=== PATIENT | female | born 1975 | race African-American/Black ===

== ENCOUNTER 2025-02-18 09:06 | Outpatient (AMB) | payer OTHER, SELFPAY ==
--- NOTE | 2025-02-18 09:03 | MHC.OFFWIV ---
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 Right flank pain: - Onset: Approximately two weeks ago. - Timing: Occurs overnight and persists into the morning, improving by around noon. - Characteristics: Pain intensifies when lying down and diminishes with movement. - Associated Symptoms: No blood observed in urine, no history of kidney stones, and no related family history. Red spot under the breast: - Onset: Noticed two days ago. - Characteristics: The spot has a different color in the center compared to the periphery, suggesting a possible insect bite. - Associated Symptoms: No itching or pain associated with the spot. Medical History: - Gastric issues requiring medication due to a history of gastric surgery in 2016. - Diabetes mellitus (implied by use of Mounjaro). Surgical History: - Gastric surgery in 2016. Medications: - Hycosamine 0.125 mg for gastric spasms, taken sublingually. - Clonidine patch for an unspecified indication. - Mounjaro 5 mg weekly for diabetes. - Vitamin D supplement. - B12 supplement. Social History: - Unemployed. - Recently moved from [place], looking for a new primary care provider. - Experience of limited mobility due to prior surgery (spent a year in the hospital post-surgery). Problem List - Right flank pain - Suspected insect bite - Diabetes mellitus - History of gastric surgery - need medication refill Plan - Suspected insect bite under the breast: Instructed to monitor the red spot, watch for any changes in size or symptoms. If the spot enlarges, follow-up is suggested. - Right flank pain: Advised rest, application of local heat, and use of acetaminophen for pain relief. Instructed to avoid nonsteroidal anti-inflammatory drugs due to gastric history. - Diabetes mellitus: Continued use of Mounjaro for management. Follow-up with a new primary care provider for ongoing diabetes management and refills. - Gastric issues: Continued use of Hycosamine and management of symptoms with prescribed medications. - all med refills sent Review of Systems - Neurological: No headaches no dizziness - Ear nose throat: No sore throat no hearing difficulty no ear pain - Cardiovascular: No syncope, no chest pain, no palpitations - Gastrointestinal: No nausea vomiting or diarrhea - Endocrine: No polyuria polydipsia no heat intolerance - Genitourinary: No dysuria , no blood in urine Physical Exam General: No acute distress HEENT: No acute findings Neck: Supple Respiratory system: Able to talk in full sentences, no audible wheeze Back : no pain with percussion throacic or flank Gastrointestinal: Right flank pain noted, no pain on palpation Breast exam : small 1 cm area of erythema with central black dot Extremities: No new findings 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 awake oriented x3 motor intact Skin: normal turgor Physical Exam Vital Signs: Last Vital Signs Temp 99.4 F 02/18/25 09:08 Pulse 66 02/18/25 09:08 BP 120/84 02/18/25 09:08 Pulse Ox 99 02/18/25 09:08 Oxygen Delivery Method Room Air 02/18/25 09:08 BMI result Body Mass Index 34.3 Assessment & Plan Assessment & Plan (1) Skin lesion: Code(s): L98.9 - Disorder of the skin and subcutaneous tissue, unspecified (2) Lumbar back pain: Code(s): M54.50 - Low back pain, unspecified (3) Diabetes 1.5, managed as type 1: Code(s): E13.9 - Other specified diabetes mellitus without complications (4) B12 deficiency: Code(s): E53.8 - Deficiency of other specified B group vitamins (5) Chronic GERD: Code(s): K21.9 - Gastro-esophageal reflux disease without esophagitis (6) History of gastric restrictive surgery: Code(s): Z98.84 - Bariatric surgery status (7) Diarrhea: Code(s): R19.7 - Diarrhea, unspecified Qualifiers: Diarrhea type: due to malabsorption Qualified Code(s): K90.9 - Intestinal malabsorption, unspecified; R19.7 - Diarrhea, unspecified Plan Right flank pain: - Onset: Approximately two weeks ago. - Timing: Occurs overnight and persists into the morning, improving by around noon. - Characteristics: Pain intensifies when lying down and diminishes with movement. - Associated Symptoms: No blood observed in urine, no history of kidney stones, and no related family history. Red spot under the breast: - Onset: Noticed two days ago. - Characteristics: The spot has a different color in the center compared to the periphery, suggesting a possible insect bite. - Associated Symptoms: No itching or pain associated with the spot. Medical History: - Gastric issues requiring medication due to a history of gastric surgery in 2016. - Diabetes mellitus (implied by use of Mounjaro). Surgical History: - Gastric surgery in 2016. Medications: - Hycosamine 0.125 mg for gastric spasms, taken sublingually. - Clonidine patch for an unspecified indication. - Mounjaro 5 mg weekly for diabetes. - Vitamin D supplement. - B12 supplement. Social History: - Unemployed. - Recently moved from [place], looking for a new primary care provider. - Experience of limited mobility due to prior surgery (spent a year in the hospital post-surgery). Problem List - Right flank pain - Suspected insect bite - Diabetes mellitus - History of gastric surgery - need medication refill Plan - Suspected insect bite under the breast: Instructed to monitor the red spot, watch for any changes in size or symptoms. If the spot enlarges, follow-up is suggested. - Right flank pain: Advised rest, application of local heat, and use of acetaminophen for pain relief. Instructed to avoid nonsteroidal anti-inflammatory drugs due to gastric history. - Diabetes mellitus: Continued use of Mounjaro for management. Follow-up with a new primary care provider for ongoing diabetes management and refills. - Gastric issues: Continued use of Hycosamine and management of symptoms with prescribed medications. - all med refills sent Medications: New cyanocobalamin (vitamin B-12) 1,000 mcg PO DAILY 90 tabs 0RF pantoprazole 40 mg PO DAILY 90 tabs 0RF hyoscyamine sulfate (Levsin/SL) 0.125 mg PO DAILY PRN 30 tabs 0RF dyspepsia 30 days clonidine HCl 0.2 mg PO BEDTIME 30 days 30 tabs 0RF tirzepatide (Mounjaro) 5 mg (0.5 mL) subcut QWEEK 2.5 mL 0RF 30 days E13.9 - Other specified diabetes mellitus without complications Coding Level of Care Code New Pt Level 4 (35807) Diagnoses Skin lesion L98.9 Lumbar back pain M54.50 Diabetes 1.5, managed as type 1 E13.9 B12 deficiency E53.8 Chronic GERD K21.9 History of gastric restrictive surgery Z98.84 Diarrhea due to malabsorption K90.9; R19.7 Diarrhea type: due to malabsorption
[2025-02-18 09:08] VITALS: BP 120/84; PULSE 66; TEMP 37.4; O2SAT 99; BMI 34.3
== END 2025-02-18 09:38 | disposition home or self-care (01) ==
PROVIDERS: Visit Provider Internal Medicine
DX: L98.9 Disorder of the skin and subcutaneous tissue, unspecified (principal); M54.50 Low back pain, unspecified; E13.9 Other specified diabetes mellitus without complications; E53.8 Deficiency of other specified B group vitamins; K21.9 Gastro-esophageal reflux disease without esophagitis; Z98.84 Bariatric surgery status; K90.9 Intestinal malabsorption, unspecified; R19.7 Diarrhea, unspecified

== ENCOUNTER 2025-03-04 10:36 | Outpatient (REF) | payer OTHER, SELFPAY ==
[2025-03-04 13:10] LABS: MANUAL DIFF FLAG NO
[2025-03-04 13:47] LABS: Hematocrit 37.8 % (37.0-47.0); Hemoglobin 12.0 g/dl (12.0-16.0); Imm Gran Abs Auto 0.01 X10*3/uL (0.00-0.03); Imm Gran Pct Auto 0.3 % (0.0-0.4); Lymphocytes Absolute Auto 1.4 X10*3/uL (1.2-4.9); Mean Corpuscular HGB Conc 31.7 g/dl (31.0-35.0); Mean Corpuscular Hemoglobin 26.6 pg (27.0-33.0); Mean Corpuscular Volume 83.8 fL (80.0-98.0); NRBC Abs Auto 0.000 X10*3/uL (0.0-0.012); NRBC Pct Auto 0.0 /100WBC (0.0-0.2); Platelet Count 286 X10*3/uL (160-400); Red Blood Count 4.51 X10*6/uL (4.20-5.50); White Blood Count 3.2 X10*3/uL (4.8-10.8)
[2025-03-04 14:07] LABS: Alanine Aminotransferase 21 U/L (0-31); Albumin Level 4.4 g/dL (3.5-5.0); Alkaline Phosphatase 65 U/L (39-117); Anion Gap 11 (12-20); Aspartate Amino Transferase 34 U/L (5-31); Blood Urea Nitrogen 8 mg/dL (9-16); Calcium 9.1 mg/dL (8.4-10.2); Carbon Dioxide 25 mmol/L (22-29); Chloride 109 mmol/L (96-108); Cholesterol 154 mg/dL (<200); Estimated Glomerular Filt Rate > 60; HDL Cholesterol 79 mg/dL (>40); Potassium 4.0 mmol/L (3.3-5.1); Sodium 141 mmol/L (135-145); Total Protein 7.2 g/dL (6.5-8.0); Triglycerides 54 mg/dL (<150)
[2025-03-04 14:18] LABS: Vitamin B12 329 pg/mL (200-900)
[2025-03-04 14:49] LABS: Microalbum/Creatinine Ratio Ur 4.3 ug/mg cr (<30)
[2025-03-07 09:38] LABS: Intrinsic Factor Antibodies Positive (Negative)
[2025-03-08 17:33] LABS: Vitamin D 25-OH, D2 6 ng/mL; Vitamin D 25-OH, D3 24 ng/mL; Vitamin D 25-OH, Total 30 ng/mL (30-100)
== END 2025-03-04 10:37 | disposition home or self-care (01) ==
LOC: HO.HMGCLDS 10:36
PROVIDERS: PCP Internal Medicine; Visit Provider Internal Medicine
DX: K21.9 Gastro-esophageal reflux disease without esophagitis (principal); I10 Essential (primary) hypertension; E66.9 Obesity, unspecified; D64.9 Anemia, unspecified; M54.9 Dorsalgia, unspecified; K58.9 Irritable bowel syndrome, unspecified; E13.9 Other specified diabetes mellitus without complications; R10.9 Unspecified abdominal pain; K58.0 Irritable bowel syndrome with diarrhea; E53.8 Deficiency of other specified B group vitamins; K90.9 Intestinal malabsorption, unspecified; E73.9 Lactose intolerance, unspecified; Z23 Encounter for immunization; Z98.84 Bariatric surgery status; Z76.89 Persons encountering health services in other specified circumstances; Z68.34 Body mass index [BMI] 34.0-34.9, adult
CPT/HCPCS: 36415; 80053; 80061; 82043; 82306; 82570; 82607; 83036; 84443; 85025; 86340; 90471; 90715; 96127

== ENCOUNTER 2025-03-04 10:36 | Outpatient (AMB) | payer OTHER, SELFPAY ==
--- OUTSIDE RECORDS SUMMARY | 2023-02-17 02:43 | XMS_ITS | Continuity of Care Document ---
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 Name Role Phone Bubba Montez MD Unavailable Unavailable Allergies, Adverse Reactions, Alerts Substance Reaction Status Criticality naproxen Active No Information Medications Medication Instructions Dosage Effective Dates (start - stop) Status Comments CLONIDINE (unknown strength) apply 1 patch by transdermal route every week Not Available - Active XIFAXAN (unknown strength) take 1 tablet by oral route 3 times every day Not Available - Active vitamin D (unknown strength) Not Available - Active VITAMIN B-12 (unknown strength) Not Available - Active Procedures Procedure Date OFFICE/OUTPATIENT VISIT, [facility] Advance Directives Directive Yes / No Effective Date File Name No Information Encounters Encounter Description Practice Location Reason(s) For Visit Diagnoses Date Provider Providers Copied on Encounter [facility], [address] [place] [address], [address], [place] tel:[phone] No Information [address] T[address] Mac. [facility] [place], [address]. tel:[phone] OFFICE/OUTPAT IENT VISIT, [facility], [facility] [place], [address], [place] tel:[phone] [place] lesion(s) (chief complaint) Benign lipomatous neoplasm of skin, subcu of unsp sites 3 Marge Remy. [address] [place], [place], [id number]. tel:[phone] Family History Family Member Type Diagnosis Age At Onset No Information Payers Payer name Insurance type Covered republican ID Authoriza tilinnea(s) [facility] [employer] [facility] [id number] Social History Type Description Quantity Date Captured Comments Alcohol Use Details Unknown Caffeine Use Details Unknown Tobacco Use Status No Information Smoking Status No Information Sex Female Chief Complaint And Reason For Visit No Information Reason For Referral Reason For Referral No Information History Of Present Illness Encounter Date Complaint History Of Prese nt Illness lesion(s) The patient pres ents with lesion(s) that began 20 years ago.The Problem has not changed. Area(s) of concern include the MIDLINE SCALP. Additional information: PT. STATES SHE HAS LIPOMA (POST-TRAUMATIC 20 YRS AGO); WOULD LIKE IT REMOVED. Functional Status Date Functional Assessmen t No Information Instructions Date Instruction Additional Infor mation No Information Assessments Type Assessment Date No Information Patient Care Teams Name Effective Dates (start - stop) Status Members No Information
[2025-03-04 10:38] VITALS: BP 118/80; PULSE 69; O2SAT 100; BMI 34.3
--- NOTE | 2025-03-04 10:38 | A.OFFPC_ITS ---
Vital Signs 03/04/25 10:38 Height 5 ft 9 in Weight 232 lb BMI 34.3 BP 118/80 Blood Pressure Location Rt brachial Position Sitting Pulse 69 Pulse Source Pulse Oximeter Pulse Oximetry (%) 100 Intake Visit Reasons: New Patient Allergies naproxen Allergy (Intermediate, Verified 03/04/25 10:38) Rash Medication List - Last Reconciled 03/04/25 by Minoo Reid MD cholecalciferol (vitamin D3) 1,250 mcg PO QWEEK clonidine 1 patch transdermal QWEEK 30 days cyanocobalamin (vitamin B-12) 1,000 mcg PO DAILY hyoscyamine sulfate (Levsin/SL) 0.125 mg PO DAILY PRN 30 days pantoprazole 40 mg PO DAILY tirzepatide (Mounjaro) 5 mg (0.5 mL) subcut QWEEK 30 days Tobacco use date assessed: 03/04/25 Dental Screening Dental Screen Date: 03/04/25 Did you have a dental visit in the last 12 months?: Yes Did you have a dental problem in the last 6 months where you did not have access to dental care?: No Was dental information given to patient?: Patient has dentist HPI New Patient HPI Details History The patient is a 49-year-old female presenting for an established care visit. Hypertension: - The patient manages her hypertension w ith a clonidine patch due to poor absorption from her stomach. Gastroesophageal Reflux Disease: - The patient has chronic GERD, which is managed with pantoprazole 40 mg. Obesity: - The patient has a BMI of 34.3 and is c urrently taking Mounjaro 5 mg. Pernicious Anemia: - The patient developed pernicious anemi a following a gastric sleeve surgery and requires B12 injections. History of Gastric & Colon Polyps: - The patient underwent a colonoscopy in April of this year, during which two noncancerous polyps were found in her stomach and removed. - No polyps were found in the bowel, and a follow-up colonoscopy was recommended in 5 years due to the stomach polyps. Back Pain: - The patient reports that her back pain has improved slightly. - She indicates the pain is located on h er right side, in the area of the kidney. - A CT scan performed in April in [facility] revealed a small nodule on her kidney, which was deemed not to require further investigation at the time. Irritable Bowel Syndrome: - The patient was diagnosed with irritab le bowel syndrome after her surgery and experiences significant fecal urgency. - She also reports lactose intolerance, which contributes to her symptoms. - These bowel issues were the basis for a disability parking placard she had in [place]. Health Maintenance: - The patient is due for a mammogram, wi th her last one being over two years ago. - She is also due for an SPRING COVERER visit, w ith her last one over a year ago in [place]. - Her last tetanus shot was possibly in 2015, making her due for a booster. - She is allergic to the influenza vacci ne. - Vitamin D levels will be checked via l ab work before considering supplementation. Medical History: - Hypertension - Chronic gastroesophageal reflux diseas e (GERD) - Obesity (BMI 34.3) - Pernicious anemia, secondary to gastri c sleeve surgery - History of non-cancerous stomach polyp s - History of a kidney nodule - Irritable bowel syndrome with fecal ur gency - Lactose intolerance - Allergy to influenza vaccine Surgical History: - History of gastric sleeve surgery - History of polypectomy (stomach) in [facility] of this year - History of knee surgery Diagnostic Results: - BMI: Elevated at 34.3. - Colonoscopy (April, current year): T wo noncancerous polyps were found in the stomach and removed; the bowel was clear. - Abdominal CT Scan (April, ye ar): Revealed a small nodule on the kidney. Health Maintenance - The patient is due for a mammogram, as her last one was over two years ago. - The patient is due for a gynecological exam, as her last one was over a year ago. - Colonoscopy follow-up is recommended i n 5 years. - The patient is due for a tetanus vacci nation, with the last possible dose administered in 2015. - The patient has a noted allergy to the influenza vaccine. - Fasting lab orders were placed. Medications - Clonidine patch for hypertension - Pantoprazole 40 mg for chronic GERD - Mounjaro 5 mg for obesity - Vitamin B12 injections for pernicious anemia - Hyoscyamine (hicosamine) as needed for abdominal pain Social History - Employment: Patient is not currently w orking. - Residence: Recently moved to the area from [place] to be near her aunt. Family History - Breast cancer: Maternal grandmother at age 89 and maternal aunt at age 67. Problem List - Hypertension - Gastroesophageal reflux disease - Obesity with BMI 34.3 - Pernicious anemia, secondary to gastri c sleeve surgery - Back pain - History of non-cancerous stomach polyp s - History of kidney nodule - Irritable bowel syndrome with fecal ur gency - Allergy to influenza vaccine - Preventative care: Mammogram screening - Preventative care: Gynecological exami nation - Preventative care: Tetanus vaccination Patient Instructions - You will receive a tetanus vaccine tod ay in the office. - After your vaccine, you can go next do or to have your fasting blood tests done. - We will wait for your blood test resul ts before deciding if you need to take Vitamin D. - An order for a mammogram will be place d for you at [facility]. - An order will be placed for you to see a sustainable development policy analyst (SPRING COVERER). - We will schedule an ultrasound of your kidneys to check on the pain in your back. - Your prescriptions for Clonidine, Moun jaro, and Pantoprazole will be sent to your pharmacy for a 90-day supply. - Your prescription for B12 injections h as already been sent to your pharmacy and includes refills. - We will fill out the paperwork for a t [employer] disability parking placard for you; you will need to fill out the front part of the form. - After your lab tests, you can check ou t at the front office associate. f/u 3 M Review of Systems - General: No fever no chills - Neurological: No headaches no dizzin ess - Ear nose throat: No sore throat no hearing difficulty no ear pain - Cardiovascular: No syncope, no chest pain, no palpitations - Gastrointestinal: No nausea vomiting or diarrhea - Endocrine: No polyuria polydipsia no heat intolerance - Genitourinary: No dysuria - Skin: No new complaints Physical Exam General: Cooperative, healthy appearing, comfortable, no acute distress Orientation: Patient oriented x3 Head: Normal to inspection Ears: Within normal limit visually Nose: Normal external nose present Face and sinus: Normal facial exam Eyes: Appearance normal, extraocular movement intact pupils reactive Neck: Normal visual inspection and supple Respiratory: Normal respiratory effort and able to speak in complete sentences. Clear to auscultation, no stridor Cardiovascular: S1 and S2 Breast exam Benign Back : discomfort over right flank with percusion mild GI: Normal to inspection. Soft to palpation and nontender Skin: Turgor normal, no acute findings Neuro: Patient oriented x3, motor sensory intact, balance intact, tandem pass Extremities: Normal to inspection [facility] Surgical History Hx laparoscopic cholecystectomy S/P laparoscopic sleeve gastrectomy S/P hernia repair History of arthroscopic knee surgery Social History Alcohol intake: never Patient Tobacco Use Status: Never used Tobacco e-Cigarette/Vaping Use: Never Used service: No Current occupational status: unemployed Cognitive needs: No Hearing needs: No Vision needs: Yes Questionnaire PHQ-9 Over the last 2 weeks, how often have you been bothered by any of the following problems? 1. Little interest or pleasure in doing things: not at all 2. Feeling down, depressed, or hopeless: not at all 3. Trouble falling or staying asleep, or sleeping too much: not at all 4. Feeling tired or having little energy: not at all 5. Poor appetite or overeating: not at all 6. Feeling bad about yourself - or that you are a failure or have let yourself or your family down: not at all 7. Trouble concentrating on things, such as reading the newspaper or watching television: not at all 8. Moving or speaking so slowly that other people could have noticed. Or the opposite - being so fidgety or restless that you have been moving around a lot more than usual: not at all 9. Thoughts that you would be better off or of hurting yourself in some way: not at all Total score: 0 Depression Screening Interpretation: Negative Depression Screening Done: Yes [id number] - PHQ-9 Billing: Yes Source: Developed by Drs. Alan Lepe, Radha Byrne, Jm Sheffield and colleagues, with an educational juliana from [employer]. Thrive Questionnaire Date Thrive assessed: 03/04/25 I am a: Patient What is your living situation today?: I have a steady place to live Within the past 12 months, did the food you bought not last and you didn't have the money to get more?: Sometimes True Within the past 12 months, did you worry whether your food would run out before you got money to buy more?: Sometimes True Do you have trouble paying for medicines?: Yes Do you have trouble getting transportation to medical appointments?: No Do you have trouble paying your heating and electricity bill?: No Do you have trouble taking care of your child, family member or friend?: No Do you have trouble with day-to-day activities such as bathing, preparing meals, shopping, managing finances, etc.?: No Are you currently unemployed and looking for a job?: Yes Are you interested in more education?: Yes Please select the resources that you would like help with: Food, Paying for medicine and Education Currently or been in a relationship where the following occur: No concerns reported THRIVE Score: 2 AUDIT C Alcohol Use Questionnaire (AUDIT-C) 1. How often do you have a drink containing alcohol?: Never 3. How often do you have six or more drinks on one occasion?: Never Total Score: 0 Score Reviewed/Action Taken: Yes GISELLE-7 AMB Questionnaire GISELLE-7 Date GISELLE - 7 assessed: 03/04/25 Feeling nervous, anxious, or on edge: 0 = Not at all Not being able to stop or control worryin = Not at all Worrying too much about different things: 0 = Not at all Trouble relaxin = Not at all Being so restless that it is hard to sit still: 0 = Not at all Becoming easily annoyed or irritable: 0 = Not at all Feeling afraid as if something awful might happen: 0 = Not at all Total GISELLE-7 score (0-4 normal; 5-9 mild; 10-14 moderate; 15-21 severe): 0 Source: Developed by Drs. Alan Lepe, Radha Byrne, Jm Sheffield and colleagues, with an educational juliana from [employer]. GISELLE-7 Assessment Billing GISELLE-7 Assessment Tool: GISELLE-7 Assessment 09449 Physical exam (Primary Care) Vital Signs: Last Vital Signs Pulse 69 03/04/25 10:38 BP 118/80 03/04/25 10:38 Pulse Ox 100 03/04/25 10:38 BMI result Body Mass Index 34.3 Tobacco/Smoking Status: Tobacco use Status Tobacco use date assessed 03/04/25 03/04/25 10:39 Patient Tobacco Use Status Never used Tobacco 03/04/25 10:44 e-Cigarette/Vaping Use Never Used 03/04/25 10:46 PHQ-9: PHQ-9 Score PHQ-9: Total score 0 03/04/25 11:09 Depression Screening Interpretation: Negative Thrive Assessment: Date of Thrive Assessment Date Thrive assessed 03/04/25 03/04/25 10:46 Currently or been in a relationship where the following occur: No concerns reported Immunizations Boostrix Tdap 2.5 Lf unit-8 mcg-5 Lf/0.5 mL intramuscular syringe Performing Provider: Minoo Reid MD Performing Location: [facility] Administered by: Hugo Tamez CMA on 03/04/25 11:05 Dose Route Admin Location Dispensed Lot Number Expiration Date NDC B[employer] 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 0.5 mL IM Left Deltoid 0.5 mL [id number] 10/08/27 34551-079-49 [employer] Total Dispensed Waste 0.5 mL 0 % VIS Given Date VIS Provided VIS Publication Date 03/04/25 Single Vaccine 20 Eligibility Eligibility Date Funding Source Not [facility] Eligible 03/04/25 Private Coding Level of Care Code New Pt Level 4 (16552) Diagnoses Establishing care with new doctor, encounter for Z76.89 Diabetes 1.5, managed as type 1 E13.9 Right flank pain R10.9 Irritable bowel syndrome with diarrhea K58.0 Abdominal cramping R10.9 Chronic GERD K21.9 B12 deficiency E53.8 Malabsorption syndrome K90.9 Lactose intolerance E73.9 History of gastric restrictive surgery Z98.84 Additional Codes GISELLE-7 Assessment Billing - GISELLE-7 Assessment Tool: GISELLE-7 Assessment 75060 ([id number]) PHQ-9 - 50369 - PHQ-9 Billing: Yes ([id number]) Assessment & Plan Assessment & Plan (1) Establishing care with new doctor, encounter for: Code(s): Z76.89 - Persons encountering health services in other specified circumstances Category: Medical (2) Diabetes 1.5, managed as type 1: Code(s): E13.9 - Other specified diabetes mellitus without complications Category: Medical (3) Right flank pain: Code(s): R10.9 - Unspecified abdominal pain Category: Medical (4) Irritable bowel syndrome with diarrhea: Code(s): K58.0 - Irritable bowel syndrome with diarrhea Category: Medical (5) Abdominal cramping: Code(s): R10.9 - Unspecified abdominal pain Category: Medical (6) Chronic GERD: Code(s): K21.9 - Gastro-esophageal reflux disease without esophagitis Category: Medical (7) B12 deficiency: Code(s): E53.8 - Deficiency of other specified B group vitamins Category: Medical (8) Malabsorption syndrome: Code(s): K90.9 - Intestinal malabsorption, unspecified Category: Medical (9) Lactose intolerance: Code(s): E73.9 - Lactose intolerance, unspecified Category: Medical (10) History of gastric restrictive surgery: Code(s): Z98.84 - Bariatric surgery status Category: Surgical Plan Hypertension: - The patient manages her hypertension with a clonidine patch due to poor absorption from her stomach. Gastroesophageal Reflux Disease: - The patient has chronic GERD, which is managed with pantoprazole 40 mg. Obesity: - The patient has a BMI of 34.3 and is currently taking Mounjaro 5 mg. Pernicious Anemia: - The patient developed pernicious anemia following a gastric sleeve surgery and requires B12 injections. History of Gastric & Colon Polyps: - The patient underwent a colonoscopy in April of this year, during which two noncancerous polyps were found in her stomach and removed. - No polyps were found in the bowel, and a follow-up colonoscopy was recommended in 5 years due to the stomach polyps. Back Pain: - The patient reports that her back pain has improved slightly. - She indicates the pain is located on her right side, in the area of the kidney. - A CT scan performed in April in [place] revealed a small nodule on her kidney, which was deemed not to require further investigation at the time. Irritable Bowel Syndrome: - The patient was diagnosed with irritable bowel syndrome after her surgery and experiences significant fecal urgency. - She also reports lactose intolerance, which contributes to her symptoms. - These bowel issues were the basis for a disability parking placard she had in [place]. Health Maintenance: - The patient is due for a mammogram, with her last one being over two years ago. - She is also due for an SPRING COVERER visit, with her last one over a year ago [facility] - Her last tetanus shot was possibly in 2016, making her due for a booster. - She is allergic to the influenza vaccine. - Vitamin D levels will be checked via lab work before considering supple mentation. Medical History: - Hypertension - Chronic gastroesophageal reflux disease (GERD) - Obesity (BMI 34.3) - Pernicious anemia, secondary to gastric sleeve surgery - History of non-cancerous stomach polyps - History of a kidney nodule - Irritable bowel syndrome with fecal urgency - Lactose intolerance - Allergy to influenza vaccine Surgical History: - History of gastric sleeve surgery - History of polypectomy (stomach) in April of this year - History of knee surgery Diagnostic Results: - BMI: Elevated at 34.3. - Colonoscopy (April, year): Two noncancerous polyps were found in the stomach and removed; the bowel was clear. - Abdominal CT Scan (April, year): Revealed a small nodule on the kidney. Health Maintenance - The patient is due for a mammogram, as her last one was over two years ago. - The patient is due for a gynecological exam, as her last one was over a year ago. - Colonoscopy follow-up is recommended in 5 years. - The patient is due for a tetanus vaccination, with the last possible dose administered in 2015. - The patient has a noted allergy to the influenza vaccine. - Fasting lab orders were placed. Medications - Clonidine patch for hypertension - Pantoprazole 40 mg for chronic GERD - Mounjaro 5 mg for obesity - Vitamin B12 injections for pernicious anemia - Hyoscyamine (hicosamine) as needed for abdominal pain Social History - Employment: Patient is not currently working. - Residence: Recently moved to the area from [place] to be near her aunt. Family History - Breast cancer: Maternal grandmother at age 89 and maternal aunt at age 67. Problem List - Hypertension - Gastroesophageal reflux disease - Obesity with BMI 34.3 - Pernicious anemia, secondary to gastric sleeve surgery - Back pain - History of non-cancerous stomach polyps - History of kidney nodule - Irritable bowel syndrome with fecal urgency - Allergy to influenza vaccine - Preventative care: Mammogram screening - Preventative care: Gynecological examination - Preventative care: Tetanus vaccination Patient Instructions - You will receive a tetanus vaccine today in the office. - After your vaccine, you can go next door to have your fasting blood tests done. - We will wait for your blood test results before deciding if you need to take Vitamin D. - An order for a mammogram will be placed for you at [facility]. - An order will be placed for you to see a sustainable development policy analyst (SPRING COVERER). - We will schedule an ultrasound of your kidneys to check on the pain in your back. - Your prescriptions for Clonidine, Mounjaro, and Pantoprazole will be sent to your pharmacy for a 90-day supply. - Your prescription for B12 injections has already been sent to your pharmacy and includes refills. - We will fill out the paperwork for a temporary disability parking placard for you; you will need to fill out the front part of the form. - After your lab tests, you can check out at the front office associate. f/u 3 M Orders: Orders Lipid Panel Today E13.9 - Other specified diabetes mellitus without complications, E53.8 - Deficiency of other specified B group vitamins, K21.9 - Gastro-esophageal reflux disease without esophagitis, Z76.89 - Persons encountering health services in other specified circumstances TSH reflex Free T4 Today E13.9 - Other specified diabetes mellitus without complications, E53.8 - Deficiency of other specified B group vitamins, K21.9 - Gastro-esophageal reflux disease without esophagitis, Z76.89 - Persons encountering health services in other specified circumstances Vitamin B12 Today E53.8 - Deficiency of other specified B group vitamins US renal RT Today R10.9 - Unspecified abdominal pain TDaP Immunization Today Z23 - Encounter for immunization Complete Blood Count Auto Diff Today E13.9 - Other specified diabetes mellitus without complications, E53.8 - Deficiency of other specified B group vitamins, K21.9 - Gastro-esophageal reflux disease without esophagitis, Z76.89 - Persons encountering health services in other specified circumstances Comprehensive [place]. Panel Fast Today E13.9 - Other specified diabetes mellitus without complications, E53.8 - Deficiency of other specified B group vitamins, K21.9 - Gastro-esophageal reflux disease without esophagitis, Z76.89 - Persons encountering health services in other specified circumstances Vitamin D 25-OH (D2 and D3) Today E13.9 - Other specified diabetes mellitus without complications, E53.8 - Deficiency of other specified B group vitamins, K21.9 - Gastro-esophageal reflux disease without esophagitis, Z76.89 - Persons encountering health services in other specified circumstances Microalbumin, Random (w Creat) Today E13.9 - Other specified diabetes mellitus without complications, E53.8 - Deficiency of other specified B group vitamins, K21.9 - Gastro-esophageal reflux disease without esophagitis, Z76.89 - Persons encountering health services in other specified circumstances Hemoglobin A1c Today E13.9 - Other specified diabetes mellitus without complications, E53.8 - Deficiency of other specified B group vitamins, K21.9 - Gastro-esophageal reflux disease without esophagitis, Z76.89 - Persons encountering health services in other specified circumstances Intrinsic Factor Antibodies Today E53.8 - Deficiency of other specified B group vitamins MM tomosynthesis screening BI Today Z12.31 - Encounter for screening mammogram for malignant neoplasm of breast Referrals SPRING COVERER Referral Z01.419 - Encounter for gynecological examination (general) (routine) without abnormal findings Medications: New cyanocobalamin (vitamin B-12) 1,000 mcg IM DAILY 30 mL 6RF 30 days Changed From clonidine 1 patch transdermal QWEEK 30 days 4 ea 0RF To clonidine 1 patch transdermal QWEEK 12 ea 3RF 90 days From tirzepatide (Mounjaro) 5 mg (0.5 mL) subcut QWEEK 30 days 2.5 mL 0RF E13.9 - Other specified diabetes mellitus without complications To tirzepatide (Mounjaro) 5 mg (0.5 mL) subcut QWEEK 6.5 mL 0RF 90 days E13.9 - Other specified diabetes mellitus without complications Refilled hyoscyamine sulfate (Levsin/SL) 0.125 mg PO DAILY PRN 30 tabs 0RF dyspepsia 30 days pantoprazole 40 mg PO DAILY 90 tabs 0RF
--- OUTSIDE RECORDS SUMMARY | 2025-03-04 12:32 | XMS_ITS | Clinical Summary ---
Author Organization [employer] Address [address] [place] [address] Care Team Providers Care Zinc Etcher Name Role Phone Unavailable Primary Care Provider Unavailabl e Encounters Date Type Department Care Team Description 02/16/[address] [facility] [address] [place] [address] Caleb Almonte MD CHW - New Patient Assistance from Last 3 Months Social History Tobacco Use Types Packs/Day Years Used Date Smoking Tobacco: Never Assessed Comments Unknown Sex and Gender Information Value Date Recorded Sex Assigned at Not on file Legal Sex Female 1:31 PM EDT Gender Identity Not on file Sexual Orientation Not on file Plan of Treatment Health Maintenance Due Date Last Done Comments CT Colonography 1974 Colonoscopy 1974 Colorectal Cancer Screening 1974 Depression Screening 1974 FIT DNA/Cologuard 1974 FIT 1974 FOBT 1974 HIV Screening 1974 SDOH Screening 1974 Sigmoidoscopy 1974 Disability Screening 1974 Alcohol/Substance Use Screening 1986 Tobacco Screening 1986 Family Planning (PISQ) 1989 Hepatitis C Screening 1992 DTaP/Tdap/Td Vaccines (1 - Tdap) 1993 Hepatitis B Vaccines (1 of 3 - 19+ 3-dose series) 1993 Pap Smear 09/06/1995 Cervical Cancer Screening 2004 HPV/Cotest 2004 Mammogram 2014 Pneumococcal Vaccine: 50+ Ye ars (1 of 1 - PCV) 2024 Zoster Vaccines (1 of 2) 2024 COVID-19 Vaccine ( - 2023-2 5 season) 2024 Influenza Vaccine (#1) 2024 RSV Patients and Pa tients Aged 60 years or older (1 - 1-dose 75+ series) 2049 HIB Vaccines Aged Out No longer eligi ble based on patient's age to complete this topic HPV Vaccines Aged Out No longer eligi ble based on patient's age to complete this topic Hepatitis A Vaccines Aged Out No long er eligible based on patient's age to complete this topic IPV Vaccines Aged Out No longer eligi ble based on patient's age to complete this topic Meningococcal B Vaccine Aged Out No l onger eligible based on patient's age to complete this topic Meningococcal Vaccine Aged Out No annika victor manuel eligible based on patient's age to complete this topic RSV under 20 months Aged Out No longe r eligible based on patient's age to complete this topic Rotavirus Vaccines Aged Out No longer eligible based on patient's age to complete this topic Insurance [facility]
--- OUTSIDE RECORDS SUMMARY | 2025-03-04 12:32 | XMS_ITS | Encounter Summary ---
Author Organization [employer] Address [address] [facility] 7 [place] [address] Care Team Providers Care Community Case Manager Name Role Phone Unavailable Primary Care Provider Unavailabl e Reason for Visit * Reason Onset Date Comments CHW - New Patient Assistance 02/16/2025 Encounter Details Date Type Department Care Team (Late st Contact Info) Description 02/16/2025 Telephone [facility] [address] [place] [address] Caleb Almonte MD [address] [place], [place] [phone] CHW - New Patient Assistance Social History Tobacco Use Types Packs/Day Years Used Date Smoking Tobacco: Never Assessed Comments Unknown Sex and Gender Information Value Date Recorded Sex Assigned at Not on file Legal Sex Female 1:31 PM EDT Gender Identity Not on file Sexual Orientation Not on file documented as of this encounter Plan of Treatment Not on file documented as of this encounter Visit Diagnoses Not on filedocumented in this encounter
== END 2025-03-04 11:09 | disposition home or self-care (01) ==
LOC: HO.HMCC 10:36
PROVIDERS: Visit Provider Internal Medicine
DX: Z76.89 Persons encountering health services in other specified circumstances (principal); E13.9 Other specified diabetes mellitus without complications; R10.9 Unspecified abdominal pain; K58.0 Irritable bowel syndrome with diarrhea; K21.9 Gastro-esophageal reflux disease without esophagitis; E53.8 Deficiency of other specified B group vitamins; K90.9 Intestinal malabsorption, unspecified; E73.9 Lactose intolerance, unspecified; Z98.84 Bariatric surgery status; Z23 Encounter for immunization

== ENCOUNTER 2025-04-23 09:27 | Outpatient (REF) | payer OTHER, SELFPAY ==
[2025-04-23 14:50] LABS: Resp Syncy Virus RNA Qual PCR NEGATIVE (Negative); SARS COV2 PCR INHOUSE NEGATIVE (Negative)
== END 2025-04-23 09:28 | disposition home or self-care (01) ==
LOC: HO.LNP 09:27
PROVIDERS: PCP Internal Medicine; Visit Provider Physician Assistant Medical
DX: Z03.818 Encounter for observation for suspected exposure to other biological agents ruled out (principal)
CPT/HCPCS: 87637

== ENCOUNTER 2025-04-23 09:27 | Outpatient (AMB) | payer OTHER, SELFPAY ==
--- OUTSIDE RECORDS SUMMARY | 2025-04-23 09:30 | XMS_ITS | Encounter Summary ---
Author Organization [employer] Address [address] [facility] [address] [place] [address] Care Team Providers Care Blast Furnace Blower Name Role Phone Unavailable Primary Care Provider Unavailabl e Reason for Visit * Reason Onset Date Comments CHW - New Patient Assistance 02/16/2025 Encounter Details Date Type Department Care Team (Late st Contact Info) Description 02/16/2025 Telephone [facility] MEDICINE [address] [place] [address] Caleb Almonte MD [address] [place], [place] [phone] CHW - New Patient Assistance Social History [...]
--- OUTSIDE RECORDS SUMMARY | 2025-04-23 09:30 | XMS_ITS | Clinical Summary ---
Author Organization [employer] Address [address] [facility] [address] [place] [address] Care Team Providers Care Commercial Producer Name Role Phone Unavailable Primary Care Provider Unavailabl e Encounters Date Type Department Care Team Description 02/16/2025 Telephone [facility] MEDICINE [address] [place] [address] Caleb Almonte MD CHW - New Patient [...] of 2) 2024 COVID-19 Vaccine ( - 2024-2 6 season) 2024 Influenza Vaccine (#1) 2024 RSV [...] patient's age to complete this topic Insurance [facility]
--- NOTE | 2025-04-23 11:41 | MHC.OFFWIV ---
Intake Vital Signs 04/23/25 11:42 Height 5 ft 9 in Weight 227 lb BMI 33.5 BP 110/80 Blood Pressure Location Rt brachial Position Sitting Respiration 17 Pulse 91 Pulse Source Pulse Oximeter Temp 100.6 F H Temp Source Oral Pulse Oximetry (%) 100 Oxygen Delivery Method Room Air Intake Visit Reasons: EP Flu symptoms Intake Note: Pt is here today greenish phelgm,coughing and bodyaches x3days Patient Tobacco Use Status: Never used Tobacco Head Still Operator Required: No Allergies naproxen Allergy (Intermediate, Verified 04/23/25 11:43) Rash Do you need a note to return to daycare/school/sports/work: Yes HPI EP Flu symptoms HPI Details Patient is a 49-year-old female With past medical history that includes 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 She has been taking Tylenol to control body aches and fever. She denies shortness of breath, trouble breathing or speaking sentences, frequent cough, chest pain or pressure, nausea vomiting or diarrhea, dizziness or weakness, severe headache, palpitations, near-syncope, or other significant associated symptoms. [facility] Surgical History Hx laparoscopic cholecystectomy S/P laparoscopic sleeve gastrectomy S/P hernia repair History of arthroscopic knee surgery Social History Alcohol intake: never Patient Tobacco Use Status: Never used Tobacco e-Cigarette/Vaping Use: Never Used service: No Current occupational status: unemployed Cognitive needs: No Hearing needs: No Vision needs: Yes Review of Systems Const All systems reviewed & are unremarkable except as noted in HPI and below Physical Exam Vital Signs: Last Vital Signs Temp 100.6 F H 04/23/25 11:42 Pulse 91 04/23/25 11:42 Resp 17 04/23/25 11:42 BP 110/80 04/23/25 11:42 Pulse Ox 100 04/23/25 11:42 Oxygen Delivery Method Room Air 04/23/25 11:42 BMI result Body Mass Index 33.5 Const General: cooperative, no acute distress, alert, awake, Physically active, ill appearing, tired appearing and well groomed; No anxious, diaphoretic, intoxicated appearing or poor hygiene Nutritional Appearance: average body habitus Orientation/consciousness: patient oriented x3 Limitations: no limitations HEENT Head: Yes normal to inspection, Yes normocephalic and Yes atraumatic Ears: hearing grossly normal bilaterally, external ears normal, TM's normal bilaterally and EAC's normal General nose exam: Normal external nose present, Normal septum present, Abnormal mucous membranes and turbinates present and Nasal discharge present Face and sinus: Yes normal facial exam, Yes sinuses nontender and Yes face symmetric Mouth: Normal oral and palatal mucosa present, lip normal, tongue normal and moist mucous membranes abnormal Throat: Yes uvula midline, Yes abnormal tonsil (mildly erythematous bilaterally), No peritonsillar mass, Yes postnasal drainage ( clear), No uvular edema and No cobblestoning Eyes General: appearance normal, both eyes and all related structures Neck Neck: Yes normal visual inspection, Yes trachea midline, Yes supple, No anterior neck swelling and Yes lymphadenopathy ( mild bilateral submandibular lymphadenopathy) Chest Chest palpation & inspection: normal palpation of entire chest wall Resp Effort & Inspection: normal respiratory effort, able to speak in complete sentences, normal respiratory pattern, no audible wheezes, Actively coughing ( very occasional dry cough), no grunting, not labored, no nasal flaring, no respiratory distress, no retractions, no tripod positioning, no use of accessory muscles, No prolonged expiratory phase and symmetric chest movement Auscultation: clear to auscultation bilaterally, no crackles, no rales, no rhonchi, no wheezes, lung sounds not diminished and No rub present Cardio Rate: regular rate Rhythm: regular rhythm Skin Other: Good color, warm and dry Neuro General: patient oriented x3 Psych Appearance: grossly normal Mental Status: mental status grossly normal Speech and movement: Normal speech and movement present Affect: normal affect Attitude: cooperative Thought process: Normal thought process present Insight: Good insight present (Psych) Judgement: Good judgement present (Psych) Assessment & Plan Assessment & Plan (1) Viral syndrome: Code(s): B34.9 - Viral infection, unspecified Plan Patient is a 49-year-old female who comes to the walk-in clinic complaining of acute onset of flu-like symptoms, including sore throat, body aches, chills, nasal congestion, and mild cough for the last few days. She is pending flu, COVID and RSV results, however due to the current flu season and activity level being high, I do think that it is highly likely that she has influenza A. Patient has been taking Tylenol to control body aches and fever, and comes in with a low-grade temp today. I advised that she continue this, as she can not tolerate ibuprofen due to GI issues. As she might still get a benefit despite being at the end of the window for Tamiflu, I advised that she not delay treatment further than a few hours from now (in case we do not get results back before the end of the day) and I did put through a prescription for the antiviral so she can start right away. We discussed other treatment being mostly getting adequate water intake and rest, as well as other supportive care and monitoring symptoms. I advised that if she starts to feel dizzy, weak, or vomiting, chest congestion or chest pressure, or other worrisome symptoms, that she needs to go to the emergency department for further evaluation. Otherwise, she can follow up with Dr. Reid on Friday, as she has her PCP in this office. She was in agreement with and amenable to this plan. Orders: Orders SARS-CoV2/FLU/RSV 04/23/25 R09.89 - Other specified symptoms and signs involving the circulatory and respiratory systems Medications: New oseltamivir (Tamiflu) 75 mg PO BID 10 caps 0RF 5 days Coding Level of Care Code Est Pt Level 4 (48151) Diagnoses Viral syndrome B34.9
[2025-04-23 11:42] VITALS: BP 110/80; PULSE 91; RESP 17; TEMP 38.1; O2SAT 100; BMI 33.5
== END 2025-04-23 12:12 | disposition home or self-care (01) ==
PROVIDERS: PCP Internal Medicine; Visit Provider Physician Assistant Medical
DX: B34.9 Viral infection, unspecified (principal)